=== PATIENT | male | born 1955 | race Caucasian/White ===

== ENCOUNTER 2018-06-10 10:08 | Outpatient (CLI) | payer BC ==
--- NOTE | 2018-06-10 14:01 | MRI ---
LEFT SHOULDER MRI WITHOUT IV CONTRAST: Date: 06/10/18 HISTORY: 62-year-old male with history of left shoulder pain, rotator cuff syndrome left shoulder, M75.102, li mited range of motion, left arm weakness for 7-8 months without known injury. TECHNIQUE: Multiplanar, multisequence MRI examination of the left shoulder is performed. FINDINGS: There is a high grade, partial thickness tear of the supraspinatus tendon at the insertion, with pote ntial punctate full thickness component with minimal fluid in the subacromial/subdeltoid bursa. Mild AC joint arthrosis changes are noted with some minimal subchondral cystic changes and some fat strand ing in the subacromial/subdeltoid bursa. Several small subchondral cystic changes are noted of the gr eater tuberosity, particularly anteriorly. The biceps tendon appears intact. Rotator cuff muscles timothy w some mild generalized muscle volume loss. There is some slight blunting of the superior labrum, but no definitive acute labral tear. IMPRESSION: High grade partial thickness tear of the supraspinatus tendon near the insertion with potential small punctate full thickness component, but no significant retraction. Mild diffuse rotator cuff muscle v olume loss. Slightly blunted superior labrum. AC joint arthrosis with some mild fat stranding and ifeanyi y minimal fluid in the subacromial bursa. POS: JUSTO
== END 2018-06-10 10:09 | disposition home or self-care (01) ==
LOC: BICMRI 10:08
PROVIDERS: ATTEND Family Medicine
DX: M75.102 Unspecified rotator cuff tear or rupture of left shoulder, not specified as traumatic (principal)

== ENCOUNTER 2021-01-24 10:50 | Inpatient (IN) | payer MEDICARE, BC ==
[~2021-01-24 10:50] MED LIST: Iopamidol-370 76% 500 ML 1 ML ONE
[2021-01-24 12:14] LABS: Hemoglobin 14.7 g/dL (14.0-18.0); Mean Corpuscular HGB CONC 32.3 g/dL (32.0-36.0); Mean Corpuscular Hemoglobin 28.6 pg (27.0-31.0); Mean Corpuscular Volume 88.7 fL (78.0-98.0); Mean Platelet Volume 7.2 fL (7.4-10.4); Platelet Count 245 thou/uL (130-400); RBC Distribution Width 13.6 % (11.5-14.5); Red Blood Cell (RBC) Count 5.15 mill/uL (4.70-6.10)
[2021-01-24 12:35] LABS: ALT (SGPT) 16 U/L (8-55); AST (SGOT) 18 U/L (5-34); Albumin 3.7 g/dL (3.4-4.8); Alkaline Phosphatase 65 U/L (40-110); Anion Gap 13 mmol/L (10-20); BUN (Urea Nitrogen) 23 mg/dL (8.4-25.7); Bilirubin, Total 0.7 mg/dL (0.2-1.2); Calc. Creatinine Clearance 0 mL/min (70-130); Calcium 10.3 mg/dL (7.8-10.44); Carbon Dioxide 31 mmol/L (23-31); Chloride 96 mmol/L (98-107); Globulin 3.8 g/dL (2.4-3.5); Glucose 115 mg/dL (80-115); Potassium 5.2 mmol/L (3.5-5.1); Protein, Total 7.5 g/dL (5.8-8.1); Sodium 135 mmol/L (136-145)
[2021-01-24 12:50] LABS: Band 4 % (5-11); Lymphocytes 15 % (21-51); MDiff Complete? YES; Monocytes 21 % (0-10); Myelocyte 1 % (0-0); Neutrophil 59 % (42-75)
[2021-01-24 12:51] LABS: Platelet Morphology Comment Appears Adequate
[2021-01-24] MEDS ORDERED: Ketorolac Tromethamine 30 MG/ML VIAL ONE (16:29)
[2021-01-24 17:12] LABS: Bilirubin Negative (Negative); Blood, Urine Negative (Negative); Clarity Clear (Clear); Glucose, Urine (Dipstick) Greater than 1000 mg/dL (Negative); Ketone, Urine Negative (Negative); Leukocyte Negative Leu/uL (Negative); Nitrite Negative (Negative); Protein, Urine (Dipstick) Negative (Neg-Trace); Specific Gravity, Urine 1.041 (1.002-1.036); Urobilinogen Normal mg/dL (Less than 2)
[2021-01-24 17:54] LABS: SARS-CoV-2 NAA Rapid Test Not Detected (NotDetected)
[2021-01-24] MEDS ORDERED: Vancomycin 1 GM/200 ML BAG ONE (18:24)
[2021-01-24 19:36] LABS: Troponin I Less than 0.010 ng/mL (< 0.028)
[2021-01-24] MEDS ORDERED: Piperacillin/Tazobactam 3.375 GM VIAL ONE (19:49)
[2021-01-24 23:01] LABS: Troponin I Less than 0.010 ng/mL (< 0.028)
[2021-01-25] MEDS ORDERED: Ondansetron ODT 4 MG TAB PO PRN (00:05)
[2021-01-25] MEDS ORDERED: Dextrose 5% in Water 1,000 ML IV PRN (00:05)
[2021-01-25] MEDS ORDERED: HumaLOG 300 UNITS/3 ML VIAL SC PRN (00:05)
[2021-01-25] MEDS ORDERED: Acetaminophen 325 MG TAB PO PRN (00:05)
[2021-01-25] MEDS ORDERED: Ondansetron PF 4 MG/2 ML Vial IVP PRN (00:05)
[2021-01-25] MEDS ORDERED: HYDROcodone/Acetaminophen 5/325 mg Tablet PO PRN (00:05)
[2021-01-25] MEDS ORDERED: Dextrose 50% Abboject 50 ML SYRINGE SLOW IVP PRN (00:05)
[2021-01-25 00:57] LABS: Anion Gap 16 mmol/L (10-20); BUN (Urea Nitrogen) 27 mg/dL (8.4-25.7); Calc. Creatinine Clearance 0 mL/min (70-130); Calcium 9.4 mg/dL (7.8-10.44); Carbon Dioxide 22 mmol/L (23-31); Chloride 101 mmol/L (98-107); Glucose 85 mg/dL (80-115); Potassium 4.1 mmol/L (3.5-5.1); Sodium 135 mmol/L (136-145)
[2021-01-25 02:14] VITALS: BMI 28.8
[2021-01-25] MEDS: Piperacillin/Tazobactam 3.375 GM in Sodium Chloride 0.9% 100 ML IVPB SCH ×3 (04:39→22:35)
[2021-01-25 05:18] LABS: Hemoglobin 13.2 g/dL (14.0-18.0); Mean Corpuscular HGB CONC 31.4 g/dL (32.0-36.0); Mean Corpuscular Hemoglobin 28.3 pg (27.0-31.0); Mean Corpuscular Volume 90.1 fL (78.0-98.0); Mean Platelet Volume 7.1 fL (7.4-10.4); Platelet Count 228 thou/uL (130-400); RBC Distribution Width 13.6 % (11.5-14.5); Red Blood Cell (RBC) Count 4.65 mill/uL (4.70-6.10); White Blood Cell (WBC) Count 8.9 thou/uL (4.8-10.8)
[2021-01-25 05:30] LABS: Anion Gap 10 mmol/L (10-20); BUN (Urea Nitrogen) 28 mg/dL (8.4-25.7); Calc. Creatinine Clearance 100 mL/min (70-130); Calcium 9.3 mg/dL (7.8-10.44); Carbon Dioxide 30 mmol/L (23-31); Chloride 99 mmol/L (98-107); Glucose 129 mg/dL (80-115); Potassium 3.9 mmol/L (3.5-5.1); Sodium 135 mmol/L (136-145)
[2021-01-25] MEDS: Ketorolac Tromethamine 30 MG/ML VIAL IVP SCH ×3 (05:53→18:19)
[2021-01-25 06:05] LABS: Band 16 % (5-11); Eosinophils 3 % (0-10); Lymphocytes 24 % (21-51); MDiff Complete? YES; Monocytes 14 % (0-10); Neutrophil 43 % (42-75)
[2021-01-25] MEDS ORDERED: VANCOMYCIN 1.25 GM/250 ML BAG 1.25 GM in Premix Bag 1 BAG IVPB SCH (07:00)
[2021-01-25] MEDS: Enoxaparin Sodium 40 MG/0.4 ML SYRINGE SC SCH (09:07)
[2021-01-25] MEDS: VANCOMYCIN 1.25 GM/250 ML BAG 1.25 GM in Premix Bag 1 BAG IVPB SCH ×2 (09:08→21:13)
[2021-01-25] MEDS: Lantus 1000 UNITS/10 ML VIAL SC SCH (22:35)
[2021-01-25] MEDS: Atorvastatin Calcium 20 MG TAB PO SCH (22:38)
[2021-01-26] MEDS: Ketorolac Tromethamine 30 MG/ML VIAL IVP SCH ×4 (00:02→19:03)
[2021-01-26 04:52] LABS: Hemoglobin 12.3 g/dL (14.0-18.0); Mean Corpuscular HGB CONC 31.8 g/dL (32.0-36.0); Mean Corpuscular Hemoglobin 28.7 pg (27.0-31.0); Mean Corpuscular Volume 90.1 fL (78.0-98.0); Mean Platelet Volume 7.2 fL (7.4-10.4); Platelet Count 225 thou/uL (130-400); RBC Distribution Width 13.7 % (11.5-14.5); Red Blood Cell (RBC) Count 4.29 mill/uL (4.70-6.10); White Blood Cell (WBC) Count 10.1 thou/uL (4.8-10.8)
[2021-01-26 05:10] LABS: Anion Gap 13 mmol/L (10-20); BUN (Urea Nitrogen) 20 mg/dL (8.4-25.7); Calc. Creatinine Clearance 99 mL/min (70-130); Calcium 8.7 mg/dL (7.8-10.44); Carbon Dioxide 25 mmol/L (23-31); Chloride 103 mmol/L (98-107); Glucose 182 mg/dL (80-115); Potassium 3.8 mmol/L (3.5-5.1); Sodium 137 mmol/L (136-145)
[2021-01-26] MEDS: Levothyroxine Sodium 100 MCG TAB PO SCH (05:14)
[2021-01-26] MEDS: Piperacillin/Tazobactam 3.375 GM in Sodium Chloride 0.9% 100 ML IVPB SCH ×3 (05:15→22:19)
[2021-01-26 05:32] LABS: Band 2 % (5-11); Eosinophils 1 % (0-10); Lymphocytes 20 % (21-51); MDiff Complete? YES; Monocytes 12 % (0-10); Neutrophil 64 % (42-75)
[2021-01-26 08:31] LABS: Vancomycin, Trough 16.2 ug/mL
[2021-01-26] MEDS: Pioglitazone HCl 15 MG TAB PO SCH (09:08)
[2021-01-26] MEDS: Enoxaparin Sodium 40 MG/0.4 ML SYRINGE SC SCH (09:08)
[2021-01-26] MEDS: Aspirin 81 mg Enteric Coated Tablet PO SCH (09:09)
[2021-01-26] MEDS: Amlodipine 5 MG TAB PO SCH (09:10)
[2021-01-26] MEDS: Empagliflozin 25 MG TAB PO SCH (09:10)
[2021-01-26] MEDS: Metamucil PACK PO SCH (09:10)
[2021-01-26] MEDS: Lantus 1000 UNITS/10 ML VIAL SC SCH ×2 (09:11→21:25)
[2021-01-26] MEDS: Multivitamin W/ Minerals 1 TAB PO SCH (09:11)
[2021-01-26] MEDS: Spironolactone 25 MG TAB PO SCH (09:14)
[2021-01-26] MEDS: VANCOMYCIN 1.25 GM/250 ML BAG 1.25 GM in Premix Bag 1 BAG IVPB SCH ×2 (09:18→21:19)
[2021-01-26] MEDS: HumaLOG 300 UNITS/3 ML VIAL SC PRN (10:38)
[2021-01-26] MEDS: Atorvastatin Calcium 20 MG TAB PO SCH (21:26)
[2021-01-27] MEDS: Ketorolac Tromethamine 30 MG/ML VIAL IVP SCH ×4 (01:10→16:30)
[2021-01-27 05:25] LABS: HIV (1/2) Antibody/Antigen Non-Reactive (NonReactive); HIV 1/2 INDEX 0.08 S/CO (<1.00)
[2021-01-27] MEDS: Piperacillin/Tazobactam 3.375 GM in Sodium Chloride 0.9% 100 ML IVPB SCH ×3 (06:02→16:30)
[2021-01-27] MEDS: Levothyroxine Sodium 100 MCG TAB PO SCH (06:02)
[2021-01-27] MEDS: Enoxaparin Sodium 40 MG/0.4 ML SYRINGE SC SCH (08:59)
[2021-01-27] MEDS: Aspirin 81 mg Enteric Coated Tablet PO SCH (08:59)
[2021-01-27] MEDS: Amlodipine 5 MG TAB PO SCH (09:00)
[2021-01-27] MEDS: Empagliflozin 25 MG TAB PO SCH (09:00)
[2021-01-27] MEDS: Lantus 1000 UNITS/10 ML VIAL SC SCH ×2 (09:00→20:55)
[2021-01-27] MEDS: Metamucil PACK PO SCH ×2 (09:00→09:16)
[2021-01-27] MEDS: Multivitamin W/ Minerals 1 TAB PO SCH (09:00)
[2021-01-27] MEDS: Spironolactone 25 MG TAB PO SCH (09:00)
[2021-01-27] MEDS: Pioglitazone HCl 15 MG TAB PO SCH (09:00)
[2021-01-27] MEDS: VANCOMYCIN 1.25 GM/250 ML BAG 1.25 GM in Premix Bag 1 BAG IVPB SCH (09:03)
[2021-01-27] MEDS: Atorvastatin Calcium 20 MG TAB PO SCH (20:54)
[2021-01-27] MEDS: Doxycycline 100 MG CAP PO SCH (20:55)
[2021-01-27] MEDS: Amoxicillin/Potassium Clav 875 MG TAB PO SCH (20:55)
[2021-01-28] MEDS: Levothyroxine Sodium 100 MCG TAB PO SCH (05:58)
[2021-01-28] MEDS: Ketorolac Tromethamine 30 MG/ML VIAL IVP SCH ×2 (06:01)
[2021-01-28] MEDS: HumaLOG 300 UNITS/3 ML VIAL SC PRN (06:21)
[2021-01-28] MEDS: Enoxaparin Sodium 40 MG/0.4 ML SYRINGE SC SCH (08:03)
[2021-01-28] MEDS: Doxycycline 100 MG CAP PO SCH (08:04)
[2021-01-28] MEDS: Spironolactone 25 MG TAB PO SCH (08:04)
[2021-01-28] MEDS: Amoxicillin/Potassium Clav 875 MG TAB PO SCH (08:04)
[2021-01-28] MEDS: Pioglitazone HCl 15 MG TAB PO SCH (08:04)
[2021-01-28] MEDS: Empagliflozin 25 MG TAB PO SCH (08:04)
[2021-01-28] MEDS: Aspirin 81 mg Enteric Coated Tablet PO SCH (08:04)
[2021-01-28] MEDS: Amlodipine 5 MG TAB PO SCH (08:04)
[2021-01-28] MEDS: Metamucil PACK PO SCH (08:04)
[2021-01-28] MEDS: Lantus 1000 UNITS/10 ML VIAL SC SCH (08:07)
[2021-01-28] MEDS: Prasterone (Dhea) [Dhea] 50 MG Capsule PO SCH ×3 (10:54→10:56)
[2021-01-28 11:54] VITALS: BP 130/60; TEMP 97.9
[2021-01-31 04:14] LABS: QuantiFERON-TB Gold Plus Negative (Negative)
[2021-01-31 14:38] LABS: A. flavus Negative (Neg:<1:1); A. fumigatus Negative (Neg:<1:1); A. niger Negative (Neg:<1:1); Blastomyces AB Negative (Neg:<1:1); Cytoplasmic (C-ANCA) <1:20 titer (Neg:<1:20); Myeloperoxidase AutoAbs <9.0 U/mL (0.0-9.0); Perinuclear (P-ANCA) <1:20 titer (Neg:<1:20); Proteinase-3 AutoAbs Less than 3.5 U/mL (0.0-3.5)
== END 2021-01-28 13:40 | disposition home or self-care (01) | DRG 179 ==
LOC: ERS 10:50 → 2NO 18:43
PROVIDERS: ADMIT Hospitalist; ATTEND Internal Medicine
PROC: 8E0ZXY6 Isolation (ICD-10-PCS; principal; 2021-01-25)
DX: J85.0 Gangrene and necrosis of lung (principal); Z20.822 Contact with and (suspected) exposure to COVID-19; E03.9 Hypothyroidism, unspecified; I10 Essential (primary) hypertension; E78.5 Hyperlipidemia, unspecified; G40.909 Epilepsy, unspecified, not intractable, without status epilepticus; E11.9 Type 2 diabetes mellitus without complications; E87.5 Hyperkalemia; E87.6 Hypokalemia; Z28.21 Immunization not carried out because of patient refusal; Z86.16 Personal history of COVID-19; Z87.01 Personal history of pneumonia (recurrent); Z79.899 Other long term (current) drug therapy; Z79.890 Hormone replacement therapy; Z79.4 Long term (current) use of insulin; Z79.82 Long term (current) use of aspirin
CPT/HCPCS: 0240U; 36415; 36416; 71045; 71275; 80048; 80053; 80202; 81003; 83520; 83880; 84484; 85025; 85652; 86256; 86480; 86612; 86635; 86698; 87040; 87086; 87385; 87389; 93005; 94640; 96365; 96367; 96375; J1650; J1815; J1885; J2543; J3370; J3490; Q9967

== ENCOUNTER 2021-02-08 08:45 | Outpatient (CLI) | payer MEDICARE, BC | END 2021-02-08 08:46 | disposition home or self-care (01) | LOC: BICRAD 08:45 | PROVIDERS: ATTEND Internal Medicine Critical Care Medicine | DX: R06.00 Dyspnea, unspecified (principal); R91.8 Other nonspecific abnormal finding of lung field | CPT/HCPCS: 71046 ==

== ENCOUNTER 2021-04-13 08:27 | Outpatient (CLI) | payer MEDICARE, BC | END 2021-04-13 08:28 | disposition home or self-care (01) | LOC: BICCT 08:27 | PROVIDERS: ATTEND Internal Medicine Critical Care Medicine | DX: R91.1 Solitary pulmonary nodule (principal); R91.8 Other nonspecific abnormal finding of lung field | CPT/HCPCS: 71250 ==

== ENCOUNTER 2021-07-06 09:24 | Outpatient (CLI) | payer MEDICARE, BC | END 2021-07-06 09:25 | disposition home or self-care (01) | LOC: BICCT 09:24 | PROVIDERS: ATTEND Internal Medicine Critical Care Medicine | DX: J85.1 Abscess of lung with pneumonia (principal); R91.8 Other nonspecific abnormal finding of lung field | CPT/HCPCS: 71250 ==

== ENCOUNTER 2022-01-04 08:29 | Outpatient (CLI) | payer MEDICARE, BC | END 2022-01-04 08:30 | disposition home or self-care (01) | LOC: CT 08:29 | PROVIDERS: ATTEND Internal Medicine Critical Care Medicine | DX: R91.8 Other nonspecific abnormal finding of lung field (principal); I25.10 Atherosclerotic heart disease of native coronary artery without angina pectoris; I70.0 Atherosclerosis of aorta | CPT/HCPCS: 71250 ==

== ENCOUNTER 2022-10-03 07:48 | Outpatient (CLI) | payer MEDICARE, BC | END 2022-10-03 07:49 | disposition home or self-care (01) | LOC: CT 07:48 | PROVIDERS: ATTEND Internal Medicine Critical Care Medicine | DX: R91.8 Other nonspecific abnormal finding of lung field (principal) | CPT/HCPCS: 71250 ==

== ENCOUNTER 2023-10-09 09:41 | Outpatient (CLI) | payer MEDICARE, BC | END 2023-10-09 09:42 | disposition home or self-care (01) | LOC: BICCT 09:41 | PROVIDERS: ATTEND Internal Medicine Critical Care Medicine | DX: R91.8 Other nonspecific abnormal finding of lung field (principal) | CPT/HCPCS: 71250 ==

== ENCOUNTER 2024-04-29 07:48 | Outpatient (CLI) | payer MEDICARE | END 2024-04-29 07:49 | disposition home or self-care (01) | LOC: ULT 07:48 | PROVIDERS: ATTEND Family Medicine | DX: R09.89 Other specified symptoms and signs involving the circulatory and respiratory systems (principal); E11.9 Type 2 diabetes mellitus without complications; Z79.4 Long term (current) use of insulin; I77.89 Other specified disorders of arteries and arterioles | CPT/HCPCS: 93923 ==

== ENCOUNTER 2024-04-30 10:40 | Inpatient (IN) | payer MEDICARE ==
[2024-04-30 11:11] LABS: #Basophils 0.09 10x3/uL (0.0-0.2); %Basophils 0.4 % (0.0-1.0); %Eosinophils 0.4 % (0.0-10.0); %Lymphocytes 6.7 % (21.0-51.0); %Monocytes 14.7 % (0.0-10.0); %Neutrophils 73.5 % (42.0-75.0); Hematocrit 34.4 % (42.0-52.0); Hemoglobin 10.8 g/dL (14.0-18.0); Mean Corpuscular HGB CONC 31.4 g/dL (32.0-36.0); Mean Corpuscular Volume 92.5 fL (78.0-98.0); Mean Platelet Volume 8.7 fL (7.4-10.4); Platelet Count 489 10x3/uL (130-400); RBC Distribution Width 14.1 % (11.5-14.5); Red Blood Cell (RBC) Count 3.72 mill/uL (4.70-6.10)
[2024-04-30 11:25] LABS: Anion Gap 11 mmol/L (10-20); BUN (Urea Nitrogen) 22 mg/dL (8.4-25.7); Calc. Creatinine Clearance 0 mL/min (70-130); Carbon Dioxide 27 mmol/L (23-31); Chloride 101 mmol/L (98-107); Potassium 5.4 mmol/L (3.5-5.1); Sodium 134 mmol/L (136-145)
[2024-04-30 11:26] LABS: ALT (SGPT) 38 U/L (8-55); AST (SGOT) 30 U/L (5-34); Albumin 1.9 g/dL (3.4-4.8); Alkaline Phosphatase 329 U/L (40-110); Bilirubin, Total 0.3 mg/dL (0.2-1.2); Calcium 9.6 mg/dL (7.8-10.44); Estimated GFR 92; Globulin 4.7 g/dL (2.4-3.5); Glucose 250 mg/dL (80-115); Lipase 42 U/L (8-78); Protein, Total 6.6 g/dL (5.8-8.1)
[2024-04-30 11:46] LABS: CRP,High Sensitivity (Inhouse) 25.82 mg/dL (< or = 0.5)
[2024-04-30] MEDS ORDERED: Iopamidol 370 76% 100 ML VIAL ONE (11:56)
[2024-04-30 13:23] LABS: Bilirubin Negative (Negative); Blood, Urine Negative (Negative); Clarity Clear (Clear); Glucose, Urine (Dipstick) Greater than 1000 mg/dL (Negative); Ketone, Urine Trace mg/dL (Negative); Leukocyte Negative Leu/uL (Negative); Nitrite Negative (Negative); Protein, Urine (Dipstick) Negative (Neg-Trace); RBC/HPF 0-3 HPF (0-3); Urobilinogen Normal mg/dL (Less than 2); WBC/HPF 0-3 HPF (0-3)
[2024-04-30 13:24] LABS: Bacteria/HPF None Seen HPF (None Seen); CAUTI Indications for Culture Fever or rigors; Squamous Epithelial 0-3 HPF (0-3)
[2024-04-30 13:25] LABS: Urine Culture Reflex No No
[2024-04-30 13:26] LABS: Free T4 (Free Thyroxine) 1.09 ng/dL (0.70-1.48); Thyroid Stimulating Hormone 1.8092 uIU/mL (0.35-4.94)
[2024-04-30] MEDS ORDERED: Acetaminophen 500 MG TAB ONE (15:30)
[2024-04-30] MEDS ORDERED: Glucagon 1 MG/ML KIT IM PRN (16:18)
[2024-04-30] MEDS ORDERED: Dextrose 50% Abboject 50 ML SYRINGE SLOW IVP PRN (16:18)
[2024-04-30] MEDS ORDERED: Senokot S 8.6-50 MG TAB PO PRN (16:18)
[2024-04-30] MEDS ORDERED: Dextrose 5% in Water 1,000 ML IV PRN (16:18)
[2024-04-30 17:47] VITALS: BMI 27.1
[2024-04-30] MEDS: Furosemide 40 MG (4 mL) VIAL SLOW IVP SCH (17:48)
[2024-04-30] MEDS: Albumin 25% 25 GM (100 mL) BOT IVPB SCH ×2 (17:48→23:45)
[2024-04-30] MEDS: Cefepime 2 GM in Sodium Chloride 0.9% 100 ML IVPB SCH (21:20)
[2024-04-30] MEDS: Atorvastatin Calcium 20 MG TAB PO SCH (21:21)
[2024-04-30] MEDS: Insulin Glargine 30 UNITS/0.3 ML VIAL SC SCH (21:22)
[2024-04-30] MEDS: Divalproex Sodium 250 MG ER.TAB PO SCH (21:22)
[2024-04-30] MEDS: Acetaminophen 325 MG TAB PO PRN (21:32)
[2024-04-30] MEDS: Insulin Lispro 100 UNIT/ML 10 ML VIAL SC PRN (21:39)
[2024-05-01] MEDS: Acetaminophen 325 MG TAB PO SCH (01:38)
[2024-05-01 05:06] LABS: #Basophils 0.08 10x3/uL (0.0-0.2); %Basophils 0.5 % (0.0-1.0); %Eosinophils 0.8 % (0.0-10.0); %Lymphocytes 9.6 % (21.0-51.0); %Monocytes 18.5 % (0.0-10.0); %Neutrophils 68.2 % (42.0-75.0); Hemoglobin 9.1 g/dL (14.0-18.0); Mean Corpuscular HGB CONC 32.5 g/dL (32.0-36.0); Mean Corpuscular Hemoglobin 28.6 pg (27.0-31.0); Mean Corpuscular Volume 88.1 fL (78.0-98.0); Mean Platelet Volume 8.8 fL (7.4-10.4); Platelet Count 402 10x3/uL (130-400); RBC Distribution Width 14.1 % (11.5-14.5); Red Blood Cell (RBC) Count 3.18 mill/uL (4.70-6.10)
[2024-05-01 05:28] LABS: Anion Gap 12 mmol/L (10-20); BUN (Urea Nitrogen) 18 mg/dL (8.4-25.7); Calc. Creatinine Clearance 93 mL/min (70-130); Calcium 9.3 mg/dL (7.8-10.44); Carbon Dioxide 28 mmol/L (23-31); Chloride 103 mmol/L (98-107); Estimated GFR 95; Glucose 168 mg/dL (80-115); Potassium 4.3 mmol/L (3.5-5.1); Sodium 139 mmol/L (136-145)
[2024-05-01] MEDS: Levothyroxine Sodium 100 MCG TAB PO SCH (05:40)
[2024-05-01] MEDS: Insulin Lispro 100 UNIT/ML 10 ML VIAL SC PRN (06:27)
[2024-05-01] MEDS: Furosemide 40 MG (4 mL) VIAL SLOW IVP SCH (09:31)
[2024-05-01] MEDS: Insulin Glargine 30 UNITS/0.3 ML VIAL SC SCH (09:31)
[2024-05-01] MEDS: Enoxaparin 40 MG (0.4 mL) SYRINGE SC SCH (09:32)
[2024-05-01 11:53] LABS: ANA Symphony (Qualitative) Negative (Negative); ANA Symphony (Quantitative) 0.2 Ratio (< 0.7 Negative); dsDNA IgG Antibody 0.9 IU/mL (<10 Negative)
[2024-05-01] MEDS: Acetaminophen 500 MG TAB PO PRN (20:09)
[2024-05-02 04:59] LABS: #Basophils 0.08 10x3/uL (0.0-0.2); %Basophils 0.4 % (0.0-1.0); %Eosinophils 0.4 % (0.0-10.0); %Lymphocytes 8.1 % (21.0-51.0); %Monocytes 15.9 % (0.0-10.0); %Neutrophils 73.2 % (42.0-75.0); Hematocrit 31.1 % (42.0-52.0); Hemoglobin 10.1 g/dL (14.0-18.0); Mean Corpuscular HGB CONC 32.5 g/dL (32.0-36.0); Mean Corpuscular Hemoglobin 29.5 pg (27.0-31.0); Mean Corpuscular Volume 90.9 fL (78.0-98.0); Mean Platelet Volume 8.9 fL (7.4-10.4); Platelet Count 442 10x3/uL (130-400); RBC Distribution Width 13.9 % (11.5-14.5); Red Blood Cell (RBC) Count 3.42 mill/uL (4.70-6.10)
[2024-05-02 05:07] LABS: ALT (SGPT) 41 U/L (8-55); AST (SGOT) 36 U/L (5-34); Albumin 2.6 g/dL (3.4-4.8); Alkaline Phosphatase 298 U/L (40-110); Anion Gap 15 mmol/L (10-20); BUN (Urea Nitrogen) 18 mg/dL (8.4-25.7); Bilirubin, Total 0.5 mg/dL (0.2-1.2); Calc. Creatinine Clearance 114 mL/min (70-130); Calcium 9.7 mg/dL (7.8-10.44); Carbon Dioxide 29 mmol/L (23-31); Chloride 101 mmol/L (98-107); Estimated GFR 100; Globulin 3.9 g/dL (2.4-3.5); Glucose 146 mg/dL (80-115); Potassium 4.7 mmol/L (3.5-5.1); Protein, Total 6.5 g/dL (5.8-8.1); Sodium 140 mmol/L (136-145)
[2024-05-02] MEDS: Empagliflozin 25 MG TAB PO SCH (09:15)
[2024-05-02] MEDS: Gabapentin 300 MG CAP PO SCH (09:16)
[2024-05-02] MEDS: Spironolactone 25 MG TAB PO SCH (09:16)
[2024-05-03 05:20] LABS: #Basophils 0.08 10x3/uL (0.0-0.2); %Basophils 0.4 % (0.0-1.0); %Eosinophils 0.8 % (0.0-10.0); %Lymphocytes 7.7 % (21.0-51.0); %Monocytes 16.7 % (0.0-10.0); %Neutrophils 72.5 % (42.0-75.0); Hematocrit 33.1 % (42.0-52.0); Hemoglobin 10.5 g/dL (14.0-18.0); Mean Corpuscular HGB CONC 31.7 g/dL (32.0-36.0); Mean Corpuscular Hemoglobin 29.1 pg (27.0-31.0); Mean Corpuscular Volume 91.7 fL (78.0-98.0); Mean Platelet Volume 8.8 fL (7.4-10.4); Platelet Count 496 10x3/uL (130-400); RBC Distribution Width 13.6 % (11.5-14.5); Red Blood Cell (RBC) Count 3.61 mill/uL (4.70-6.10)
[2024-05-03 05:39] LABS: ALT (SGPT) 64 U/L (8-55); AST (SGOT) 65 U/L (5-34); Albumin 2.5 g/dL (3.4-4.8); Alkaline Phosphatase 328 U/L (40-110); Anion Gap 14 mmol/L (10-20); BUN (Urea Nitrogen) 18 mg/dL (8.4-25.7); Bilirubin, Total 0.4 mg/dL (0.2-1.2); Calc. Creatinine Clearance 105 mL/min (70-130); Carbon Dioxide 30 mmol/L (23-31); Chloride 98 mmol/L (98-107); Estimated GFR 100; Glucose 110 mg/dL (80-115); Potassium 4.7 mmol/L (3.5-5.1); Protein, Total 6.5 g/dL (5.8-8.1); Sodium 137 mmol/L (136-145)
[2024-05-03 05:48] LABS: CRP,High Sensitivity (Inhouse) 17.33 mg/dL (< or = 0.5)
[2024-05-03 12:20] VITALS: BP 123/58; TEMP 97.8
== END 2024-05-03 12:41 | disposition home or self-care (01) | DRG 815 ==
LOC: ERS 10:40 → 2NO 17:00
PROVIDERS: ADMIT Family Medicine; ATTEND Internal Medicine
DX: D72.829 Elevated white blood cell count, unspecified (principal); E87.1 Hypo-osmolality and hyponatremia; E11.40 Type 2 diabetes mellitus with diabetic neuropathy, unspecified; M48.07 Spinal stenosis, lumbosacral region; J84.10 Pulmonary fibrosis, unspecified; E78.5 Hyperlipidemia, unspecified; E03.9 Hypothyroidism, unspecified; R91.8 Other nonspecific abnormal finding of lung field; G40.909 Epilepsy, unspecified, not intractable, without status epilepticus; I11.0 Hypertensive heart disease with heart failure; I50.9 Heart failure, unspecified; D64.9 Anemia, unspecified; E87.5 Hyperkalemia; Z79.4 Long term (current) use of insulin; Z79.85 Long-term (current) use of injectable non-insulin antidiabetic drugs; Z79.890 Hormone replacement therapy; Z79.899 Other long term (current) drug therapy; Z79.84 Long term (current) use of oral hypoglycemic drugs
CPT/HCPCS: 36415; 36416; 71045; 71250; 72158; 74177; 80048; 80053; 80164; 81001; 82550; 82607; 83605; 83690; 83880; 84145; 84439; 84443; 85025; 85379; 86038; 86140; 86141; 86225; 87040; 88184; 88185; 88189; 93005; 93306; 93970; J0692; J1650; J1815; J1940; P9047; Q9967

== ENCOUNTER 2024-05-25 18:03 | Inpatient (IN) | payer MEDICARE ==
[2024-05-25] MEDS ORDERED: Ondansetron PF 4 MG/2 ML Vial IVP PRN (19:15)
[2024-05-25] MEDS ORDERED: Dextrose 50% Abboject 50 ML SYRINGE SLOW IVP PRN (19:17)
[2024-05-25] MEDS ORDERED: Dextrose 5% in Water 1,000 ML IV PRN (19:17)
[2024-05-25] MEDS ORDERED: Glucagon 1 MG/ML KIT IM PRN (19:17)
[2024-05-25] MEDS: Enoxaparin 40 MG (0.4 mL) SYRINGE SC SCH (20:25)
[2024-05-25] MEDS: Sodium Chloride 0.9% 1,000 ML IV SCH (20:25)
[2024-05-25] MEDS: Gabapentin 300 MG CAP PO SCH (20:26)
[2024-05-25] MEDS: Divalproex Sodium 500 MG ER.TAB PO SCH (20:26)
[2024-05-25] MEDS: Ketorolac Tromethamine 30 MG (1 mL) VIAL IVP PRN (20:26)
[2024-05-25] MEDS: Atorvastatin Calcium 20 MG TAB PO SCH (20:26)
[2024-05-25 20:33] VITALS: BMI 25.4
[2024-05-25] MEDS: Insulin Glargine 30 UNITS/0.3 ML VIAL SC SCH (21:37)
[2024-05-26] MEDS ORDERED: Cyclobenzaprine 10 MG TAB PO PRN
[2024-05-26] MEDS: Levothyroxine Sodium 100 MCG TAB PO SCH (05:51)
[2024-05-26 06:27] LABS: #Basophils 0.03 10x3/uL (0.0-0.2); %Basophils 0.3 % (0.0-1.0); %Eosinophils 2.8 % (0.0-10.0); %Lymphocytes 22.2 % (21.0-51.0); %Monocytes 18.4 % (0.0-10.0); %Neutrophils 55.6 % (42.0-75.0); Hematocrit 29.9 % (42.0-52.0); Mean Corpuscular HGB CONC 30.1 g/dL (32.0-36.0); Mean Corpuscular Hemoglobin 27.1 pg (27.0-31.0); Mean Corpuscular Volume 90.1 fL (78.0-98.0); Mean Platelet Volume 9.7 fL (7.4-10.4); Platelet Count 322 10x3/uL (130-400); RBC Distribution Width 13.6 % (11.5-14.5); Red Blood Cell (RBC) Count 3.32 mill/uL (4.70-6.10)
[2024-05-26 06:42] LABS: Anion Gap 13 mmol/L (10-20); BUN (Urea Nitrogen) 37 mg/dL (8.4-25.7); Calc. Creatinine Clearance 79 mL/min (70-130); Calcium 8.7 mg/dL (7.8-10.44); Carbon Dioxide 23 mmol/L (23-31); Chloride 110 mmol/L (98-107); Estimated GFR 93; Glucose 91 mg/dL (80-115); Potassium 4.2 mmol/L (3.5-5.1); Sodium 142 mmol/L (136-145)
[2024-05-26] MEDS: Empagliflozin 25 MG TAB PO SCH (08:40)
[2024-05-26] MEDS: Spironolactone 25 MG TAB PO SCH (08:41)
[2024-05-26] MEDS: Cholecalciferol 1,000 UNITS (25 MCG) TAB PO SCH (08:41)
[2024-05-26] MEDS: Acetaminophen 325 MG TAB PO PRN (11:51)
[2024-05-26 13:24] VITALS: BMI 25.4
[2024-05-26] MEDS: Enoxaparin 40 MG (0.4 mL) SYRINGE SC SCH (20:45)
[2024-05-27] MEDS: Ketorolac Tromethamine 30 MG (1 mL) VIAL IVP PRN (01:56)
[2024-05-27 05:53] LABS: #Basophils 0.05 10x3/uL (0.0-0.2); %Basophils 0.4 % (0.0-1.0); %Eosinophils 1.9 % (0.0-10.0); %Lymphocytes 27.8 % (21.0-51.0); %Monocytes 13.5 % (0.0-10.0); %Neutrophils 55.8 % (42.0-75.0); Mean Corpuscular Hemoglobin 27.5 pg (27.0-31.0); Mean Corpuscular Volume 88.7 fL (78.0-98.0); Mean Platelet Volume 9.9 fL (7.4-10.4); Platelet Count 316 10x3/uL (130-400); RBC Distribution Width 13.5 % (11.5-14.5); Red Blood Cell (RBC) Count 3.27 mill/uL (4.70-6.10)
[2024-05-27 06:19] LABS: Anion Gap 17 mmol/L (10-20); BUN (Urea Nitrogen) 42 mg/dL (8.4-25.7); Calc. Creatinine Clearance 85 mL/min (70-130); Calcium 8.6 mg/dL (7.8-10.44); Carbon Dioxide 23 mmol/L (23-31); Chloride 108 mmol/L (98-107); Estimated GFR 95; Glucose 92 mg/dL (80-115); Potassium 4.4 mmol/L (3.5-5.1); Sodium 144 mmol/L (136-145)
[2024-05-27] MEDS ORDERED: Morphine 2 MG/ML VIAL SLOW IVP PRN (13:29)
[2024-05-27] MEDS: methylPREDNISolone Sod Succ 40 MG VIAL IVP SCH ×2 (15:22→20:03)
[2024-05-27] MEDS: Pantoprazole DR 40 MG TAB PO SCH (15:22)
[2024-05-27] MEDS: Insulin Lispro 100 UNIT/ML 10 ML VIAL SC PRN (17:18)
[2024-05-28] MEDS: Pantoprazole DR 40 MG TAB PO SCH (08:15)
[2024-05-28] MEDS ORDERED: Morphine 4 MG/ML VIAL SLOW IVP PRN (09:22)
[2024-05-28] MEDS: Insulin Lispro 100 UNIT/ML 10 ML VIAL SC PRN (20:09)
[2024-05-29 09:09] LABS: #Basophils Less than 0.03 10x3/uL (0.0-0.2); #Eosinophils Less than 0.03 10x3/uL (0.0-0.7); %Basophils 0.1 % (0.0-1.0); %Lymphocytes 9.8 % (21.0-51.0); %Monocytes 7.2 % (0.0-10.0); %Neutrophils 81.8 % (42.0-75.0); Hematocrit 33.5 % (42.0-52.0); Hemoglobin 10.4 g/dL (14.0-18.0); Mean Corpuscular Volume 90.1 fL (78.0-98.0); Mean Platelet Volume 9.9 fL (7.4-10.4); Platelet Count 360 10x3/uL (130-400); RBC Distribution Width 13.3 % (11.5-14.5); Red Blood Cell (RBC) Count 3.72 mill/uL (4.70-6.10)
[2024-05-29 09:40] LABS: Anion Gap 18 mmol/L (10-20); BUN (Urea Nitrogen) 72 mg/dL (8.4-25.7); Calc. Creatinine Clearance 44 mL/min (70-130); Calcium 9.2 mg/dL (7.8-10.44); Carbon Dioxide 22 mmol/L (23-31); Chloride 104 mmol/L (98-107); Estimated GFR 46; Glucose 355 mg/dL (80-115); Potassium 6.1 mmol/L (3.5-5.1); Sodium 138 mmol/L (136-145)
[2024-05-29] MEDS: Albuterol 2.5 MG (3 mL) NEB NEB SCH (10:53)
[2024-05-29] MEDS: Sodium Polystyrene Sulfonate 15 GM (60 mL) BOT PO SCH (11:47)
[2024-05-29] MEDS: Insulin Regular, Human 100 UNIT/ML 10 ML VIAL IVP SCH (11:48)
[2024-05-29] MEDS: Dextrose 50% Abboject 50 ML SYRINGE SLOW IVP SCH (11:49)
[2024-05-29] MEDS: HumaLOG 300 UNITS/3 ML VIAL SC SCH (12:15)
[2024-05-29 15:12] LABS: Potassium 4.6 mmol/L (3.5-5.1)
[2024-05-29] MEDS: Insulin Lispro 100 UNIT/ML 10 ML VIAL SC SCH (18:29)
[2024-05-30 07:40] LABS: Anion Gap 12 mmol/L (10-20); BUN (Urea Nitrogen) 53 mg/dL (8.4-25.7); Calc. Creatinine Clearance 80 mL/min (70-130); Calcium 8.7 mg/dL (7.8-10.44); Carbon Dioxide 28 mmol/L (23-31); Chloride 105 mmol/L (98-107); Estimated GFR 93; Glucose 89 mg/dL (80-115); Potassium 4.2 mmol/L (3.5-5.1); Sodium 141 mmol/L (136-145)
[2024-05-30 07:56] LABS: Hematocrit 30.3 % (42.0-52.0); Hemoglobin 9.8 g/dL (14.0-18.0); Mean Corpuscular HGB CONC 32.3 g/dL (32.0-36.0); Mean Corpuscular Hemoglobin 28.2 pg (27.0-31.0); Mean Corpuscular Volume 87.1 fL (78.0-98.0); Mean Platelet Volume 10.3 fL (7.4-10.4); Platelet Count 331 10x3/uL (130-400); RBC Distribution Width 13.8 % (11.5-14.5); Red Blood Cell (RBC) Count 3.48 mill/uL (4.70-6.10)
[2024-05-30 08:28] LABS: Band 3 % (5-11); Lymphocytes 34 % (21-51); Metamyelocyte 1 % (0-0); Monocytes 7 % (0-10); Myelocyte 2 % (0-0); Neutrophil 53 % (42-75); Platelet Adequacy Comment Platelets Normal; Polychromasia SLIGHT = 2-3 cells HPF (0-2)
[2024-05-30 08:30] VITALS: BP 112/58; TEMP 98.3
== END 2024-05-30 13:18 | disposition home health service (06) | DRG 552 ==
LOC: INTOOBSV 18:03 → T4-B 18:03 → OBSVTOIN 05-27 09:45
PROVIDERS: ADMIT Internal Medicine; ATTEND Internal Medicine
DX: M50.222 Other cervical disc displacement at C5-C6 level (principal); I50.32 Chronic diastolic (congestive) heart failure; M50.223 Other cervical disc displacement at C6-C7 level; E87.5 Hyperkalemia; M47.814 Spondylosis without myelopathy or radiculopathy, thoracic region; I11.0 Hypertensive heart disease with heart failure; E78.5 Hyperlipidemia, unspecified; D64.9 Anemia, unspecified; E03.9 Hypothyroidism, unspecified; Z98.890 Other specified postprocedural states; E86.0 Dehydration; G40.909 Epilepsy, unspecified, not intractable, without status epilepticus; R55 Syncope and collapse; Z79.899 Other long term (current) drug therapy; Z79.4 Long term (current) use of insulin
CPT/HCPCS: 36415; 36416; 72141; 72146; 80048; 85025; 93005; 93010; 94640; 96372; 96374; 96376; G0378; J1650; J1815; J1885; J2919; J7030; J7611; J7999

== ENCOUNTER 2024-06-07 15:16 | Inpatient (IN) | payer MEDICARE ==
[2024-06-07 16:17] LABS: Hematocrit 32.1 % (42.0-52.0); Hemoglobin 10.4 g/dL (14.0-18.0); Mean Corpuscular HGB CONC 32.4 g/dL (32.0-36.0); Mean Corpuscular Hemoglobin 28.1 pg (27.0-31.0); Mean Corpuscular Volume 86.8 fL (78.0-98.0); Mean Platelet Volume 11.4 fL (7.4-10.4); Platelet Count 165 10x3/uL (130-400); RBC Distribution Width 15.1 % (11.5-14.5)
[2024-06-07 16:32] LABS: ALT (SGPT) 107 U/L (8-55); AST (SGOT) 105 U/L (5-34); Alkaline Phosphatase 107 U/L (40-110); Anion Gap 19 mmol/L (10-20); BUN (Urea Nitrogen) 37 mg/dL (8.4-25.7); Bilirubin, Total 0.4 mg/dL (0.2-1.2); Calc. Creatinine Clearance 0 mL/min (70-130); Calcium 9.4 mg/dL (7.8-10.44); Carbon Dioxide 20 mmol/L (23-31); Chloride 94 mmol/L (98-107); Estimated GFR 56; Globulin 3.9 g/dL (2.4-3.5); Glucose 162 mg/dL (80-115); Lipase 29 U/L (8-78); Magnesium 1.7 mg/dL (1.6-2.6); Potassium 4.9 mmol/L (3.5-5.1); Protein, Total 6.9 g/dL (5.8-8.1); Sodium 128 mmol/L (136-145)
[2024-06-07 16:34] LABS: Troponin I 0.056 ng/mL (< 0.028)
[2024-06-07 16:37] LABS: Band 21 % (5-11); Lymphocytes 8 % (21-51); Monocytes 7 % (0-10); Neutrophil 63 % (42-75); Platelet Adequacy Comment Platelets Normal; Polychromasia SLIGHT = 2-3 cells HPF (0-2); Reactive Lymphocytes 1 % (0-10)
[2024-06-07] MEDS ORDERED: Aspirin Chewable 81 MG TAB ONE (17:12)
[2024-06-07 18:03] LABS: Bilirubin Negative (Negative); Blood, Urine Negative (Negative); CAUTI Indications for Culture Fever or rigors; Clarity Clear (Clear); Glucose, Urine (Dipstick) Greater than 1000 mg/dL (Negative); Ketone, Urine Trace mg/dL (Negative); Leukocyte Negative Leu/uL (Negative); Nitrite Negative (Negative); Protein, Urine (Dipstick) Negative (Neg-Trace); RBC/HPF 0-3 HPF (0-3); Specific Gravity, Urine 1.027 (1.002-1.036); Squamous Epithelial 0-3 HPF (0-3); Urobilinogen Normal mg/dL (Less than 2); WBC/HPF 0-3 HPF (0-3)
[2024-06-07 18:14] LABS: Bacteria/HPF Rare-Few HPF (None Seen)
[2024-06-07 18:15] LABS: Urine Culture Reflex No No
[2024-06-07] MEDS ORDERED: DOBUTamine 500 mg/250 ml 250 ML ONE (18:21)
[2024-06-07] MEDS ORDERED: Cefepime 2 GM VIAL ONE (20:11)
[2024-06-07] MEDS ORDERED: Sodium Chloride 0.9% 100 ML ONE (20:11)
[2024-06-07] MEDS ORDERED: Ondansetron PF 4 MG/2 ML Vial IVP PRN (20:19)
[2024-06-07] MEDS ORDERED: Insulin Lispro 100 UNIT/ML 10 ML VIAL SC PRN (20:25)
[2024-06-07] MEDS ORDERED: Dextrose 50% Abboject 50 ML SYRINGE SLOW IVP PRN (20:25)
[2024-06-07] MEDS ORDERED: Dextrose 5% in Water 1,000 ML IV PRN (20:25)
[2024-06-07] MEDS ORDERED: Glucagon 1 MG/ML KIT IM PRN (20:25)
[2024-06-07] MEDS ORDERED: Vancomycin 1 GM/200 ML (FROZEN) BAG ONE (20:48)
[2024-06-07 20:50] LABS: Anion Gap 15 mmol/L (10-20); BUN (Urea Nitrogen) 35 mg/dL (8.4-25.7); Calc. Creatinine Clearance 0 mL/min (70-130); Calcium 8.5 mg/dL (7.8-10.44); Carbon Dioxide 21 mmol/L (23-31); Chloride 100 mmol/L (98-107); Estimated GFR 74; Glucose 126 mg/dL (80-115); Potassium 4.3 mmol/L (3.5-5.1); Sodium 132 mmol/L (136-145)
[2024-06-07 20:56] LABS: Troponin I 0.033 ng/mL (< 0.028)
[2024-06-07 22:49] VITALS: BMI 26.9
[2024-06-07] MEDS: Heparin 5,000 UNITS/ML VIAL SC SCH (23:24)
[2024-06-07] MEDS: Vancomycin 1 GM in Premix 1 BAG IVPB SCH (23:24)
[2024-06-07] MEDS: Sodium Chloride 0.9% 1,000 ML IV SCH (23:24)
[2024-06-08 00:01] LABS: Influenza A by NAA Not Detected (NotDetected); Influenza B by NAA Not Detected (NotDetected); SARS-CoV-2 NAA Rapid Test Not Detected (NotDetected)
[2024-06-08 00:02] LABS: Troponin I 0.019 ng/mL (< 0.028)
[2024-06-08 04:54] LABS: #Basophils 0.05 10x3/uL (0.0-0.2); %Basophils 0.3 % (0.0-1.0); %Eosinophils 0.2 % (0.0-10.0); %Lymphocytes 7.5 % (21.0-51.0); %Monocytes 8.6 % (0.0-10.0); %Neutrophils 82.7 % (42.0-75.0); Hemoglobin 9.6 g/dL (14.0-18.0); Mean Corpuscular Hemoglobin 27.6 pg (27.0-31.0); Mean Corpuscular Volume 86.2 fL (78.0-98.0); Mean Platelet Volume 11.6 fL (7.4-10.4); Platelet Count 138 10x3/uL (130-400); RBC Distribution Width 15.1 % (11.5-14.5); Red Blood Cell (RBC) Count 3.48 mill/uL (4.70-6.10)
[2024-06-08 05:18] LABS: ALT (SGPT) 79 U/L (8-55); AST (SGOT) 71 U/L (5-34); Albumin 2.5 g/dL (3.4-4.8); Alkaline Phosphatase 94 U/L (40-110); Anion Gap 18 mmol/L (10-20); BUN (Urea Nitrogen) 27 mg/dL (8.4-25.7); Bilirubin, Total 0.4 mg/dL (0.2-1.2); Calc. Creatinine Clearance 88 mL/min (70-130); Calcium 8.5 mg/dL (7.8-10.44); Carbon Dioxide 18 mmol/L (23-31); Chloride 101 mmol/L (98-107); Estimated GFR 94; Globulin 3.4 g/dL (2.4-3.5); Glucose 116 mg/dL (80-115); Potassium 4.7 mmol/L (3.5-5.1); Protein, Total 5.9 g/dL (5.8-8.1); Sodium 132 mmol/L (136-145)
[2024-06-08] MEDS: Levothyroxine Sodium 100 MCG TAB PO SCH (06:35)
[2024-06-08] MEDS: Cefepime 1 GM in Sodium Chloride 0.9% 100 ML IVPB SCH (08:41)
[2024-06-08] MEDS: Insulin Glargine 30 UNITS/0.3 ML VIAL SC SCH (08:42)
[2024-06-08] MEDS: Empagliflozin 25 MG TAB PO SCH (08:42)
[2024-06-08] MEDS: Ascorbic Acid 500 mg Chewable Tablet PO SCH (08:42)
[2024-06-08] MEDS: Cholecalciferol 1,000 UNITS (25 MCG) TAB PO SCH (08:42)
[2024-06-08] MEDS: Divalproex Sodium 250 MG ER.TAB PO SCH (08:42)
[2024-06-08] MEDS: Gabapentin 300 MG CAP PO SCH (08:42)
[2024-06-08] MEDS: Acetaminophen 500 MG TAB PO PRN (08:43)
[2024-06-08] MEDS: Insulin Lispro 100 UNIT/ML 10 ML VIAL SC PRN (10:56)
[2024-06-08] MEDS: Vancomycin HCl 750 MG in Sodium Chloride 0.9% 250 ML 250 ML IVPB SCH (11:00)
[2024-06-08] MEDS: Sodium Chloride 0.9% 500 ML IV SCH (11:47)
[2024-06-08] MEDS: Guaifenesin DM 100-10/5 ML UDCUP PO PRN (21:11)
[2024-06-08] MEDS: Atorvastatin Calcium 20 MG TAB PO SCH (21:11)
[2024-06-08] MEDS: Benzocaine/Menthol 1 LOZ LOZ PO PRN (21:11)
[2024-06-08] MEDS: Vancomycin 1 GM in Premix 1 BAG IVPB SCH (21:13)
[2024-06-08] MEDS: Cefepime 2 GM in Sodium Chloride 0.9% 100 ML IVPB SCH (21:13)
[2024-06-09 05:06] LABS: ALT (SGPT) 61 U/L (8-55); AST (SGOT) 65 U/L (5-34); Albumin 2.1 g/dL (3.4-4.8); Alkaline Phosphatase 121 U/L (40-110); Anion Gap 11 mmol/L (10-20); BUN (Urea Nitrogen) 16 mg/dL (8.4-25.7); Bilirubin, Total 0.3 mg/dL (0.2-1.2); Calc. Creatinine Clearance 102 mL/min (70-130); Calcium 8.3 mg/dL (7.8-10.44); Carbon Dioxide 21 mmol/L (23-31); Chloride 104 mmol/L (98-107); Estimated GFR 98; Glucose 126 mg/dL (80-115); Potassium 4.1 mmol/L (3.5-5.1); Protein, Total 5.1 g/dL (5.8-8.1); Sodium 132 mmol/L (136-145)
[2024-06-09 05:07] LABS: #Basophils Less than 0.03 10x3/uL (0.0-0.2); #Eosinophils Less than 0.03 10x3/uL (0.0-0.7); %Basophils 0.3 % (0.0-1.0); %Eosinophils 0.1 % (0.0-10.0); %Lymphocytes 18.6 % (21.0-51.0); %Monocytes 10.1 % (0.0-10.0); Hematocrit 26.9 % (42.0-52.0); Hemoglobin 8.7 g/dL (14.0-18.0); Mean Corpuscular HGB CONC 32.3 g/dL (32.0-36.0); Mean Corpuscular Hemoglobin 27.7 pg (27.0-31.0); Mean Corpuscular Volume 85.7 fL (78.0-98.0); Mean Platelet Volume 11.8 fL (7.4-10.4); Platelet Count 112 10x3/uL (130-400); RBC Distribution Width 15.3 % (11.5-14.5); Red Blood Cell (RBC) Count 3.14 mill/uL (4.70-6.10)
[2024-06-09] MEDS: Ampicillin/Sulbactam 3 GM in Sodium Chloride 0.9% 100 ML IVPB SCH (19:27)
[2024-06-10 04:49] LABS: Hematocrit 28.1 % (42.0-52.0); Hemoglobin 8.9 g/dL (14.0-18.0); Mean Corpuscular HGB CONC 31.7 g/dL (32.0-36.0); Mean Corpuscular Hemoglobin 27.5 pg (27.0-31.0); Mean Corpuscular Volume 86.7 fL (78.0-98.0); Mean Platelet Volume 12.1 fL (7.4-10.4); Platelet Count 122 10x3/uL (130-400); RBC Distribution Width 15.8 % (11.5-14.5); Red Blood Cell (RBC) Count 3.24 mill/uL (4.70-6.10)
[2024-06-10 05:04] LABS: ALT (SGPT) 61 U/L (8-55); AST (SGOT) 66 U/L (5-34); Alkaline Phosphatase 147 U/L (40-110); Anion Gap 12 mmol/L (10-20); BUN (Urea Nitrogen) 10 mg/dL (8.4-25.7); Bilirubin, Total 0.3 mg/dL (0.2-1.2); Calc. Creatinine Clearance 113 mL/min (70-130); Calcium 8.2 mg/dL (7.8-10.44); Carbon Dioxide 25 mmol/L (23-31); Chloride 105 mmol/L (98-107); Estimated GFR 101; Glucose 64 mg/dL (80-115); Potassium 3.8 mmol/L (3.5-5.1); Sodium 138 mmol/L (136-145)
[2024-06-10 07:23] LABS: Band 16 % (5-11); Eosinophils 1 % (0-10); Lymphocytes 16 % (21-51); Monocytes 6 % (0-10); Neutrophil 60 % (42-75); Platelet Adequacy Comment Platelets Decreased; RBC Morphology Within Normal Limits
[2024-06-10 08:26] VITALS: TEMP 98.4
[2024-06-10 14:14] VITALS: BP 120/70
== END 2024-06-10 14:29 | disposition home or self-care (01) | DRG 871 ==
LOC: ERS 15:16 → 2NO 20:01 → MSONC 06-09 18:40
PROVIDERS: ADMIT Internal Medicine; ATTEND Internal Medicine
DX: A41.9 Sepsis, unspecified organism (principal); J69.0 Pneumonitis due to inhalation of food and vomit; R65.21 Severe sepsis with septic shock; E87.1 Hypo-osmolality and hyponatremia; N17.9 Acute kidney failure, unspecified; I50.32 Chronic diastolic (congestive) heart failure; I24.89 Other forms of acute ischemic heart disease; I95.9 Hypotension, unspecified; G40.909 Epilepsy, unspecified, not intractable, without status epilepticus; E11.9 Type 2 diabetes mellitus without complications; E03.9 Hypothyroidism, unspecified; E78.5 Hyperlipidemia, unspecified; I11.0 Hypertensive heart disease with heart failure; E88.09 Other disorders of plasma-protein metabolism, not elsewhere classified; Z79.899 Other long term (current) drug therapy
CPT/HCPCS: 36415; 36416; 71045; 80053; 80202; 81001; 83605; 83690; 83735; 83880; 84484; 85025; 87040; 87086; 93005; 94760; 96374; 96375; J0295; J0692; J1250; J1644; J1815; J3370; J3370-JW; J7030; J7050

== ENCOUNTER 2025-05-04 08:18 | Outpatient (CLI) | payer MEDICARE ==
[2025-05-04 10:05] LABS: #Basophils 0.06 10x3/uL (0.0-0.2); #Eosinophils 0.09 10x3/uL (0.0-0.7); #Monocytes 1.47 10x3/uL (0.11-0.59); #Neutrophils 7.37 10x3/uL (1.40-6.50); %Basophils 0.5 % (0.0-1.0); %Eosinophils 0.8 % (0.0-10.0); %Lymphocytes 20.3 % (21.0-51.0); %Monocytes 12.9 % (0.0-10.0); %Neutrophils 64.9 % (42.0-75.0); Hematocrit 48.2 % (42.0-52.0); Hemoglobin 15.2 g/dL (14.0-18.0); Mean Corpuscular Hemoglobin 28.7 pg (27.0-31.0); Mean Corpuscular Volume 91.1 fL (78.0-98.0); Platelet Count 179 10x3/uL (130-400); Red Blood Cell (RBC) Count 5.29 mill/uL (4.70-6.10); White Blood Cell (WBC) Count 11.37 10x3/uL (4.8-10.8)
[2025-05-04 10:27] LABS: ALT (SGPT) 26 U/L (Less than 45); AST (SGOT) 26 U/L (11-34); Albumin 3.7 g/dL (3.1-4.5); Alkaline Phosphatase 50 U/L (40-110); Anion Gap 14 mmol/L (10-20); BUN (Urea Nitrogen) 15 mg/dL (8.4-25.7); Bilirubin, Total 0.5 mg/dL (0.3-1.2); Calc. Creatinine Clearance 0 mL/min (70-130); Calcium 9.1 mg/dL (7.8-10.44); Carbon Dioxide 27 mmol/L (23-31); Chloride 105 mmol/L (98-107); Globulin 2.7 g/dL (2.4-3.5); Glucose 198 mg/dL (83-110); Potassium 4.2 mmol/L (3.5-5.1); Sodium 142 mmol/L (136-145)
== END 2025-05-04 08:19 | disposition home or self-care (01) ==
LOC: LABBT 08:18
PROVIDERS: ATTEND Surgery
DX: Z01.818 Encounter for other preprocedural examination (principal); K63.5 Polyp of colon
CPT/HCPCS: 80053; 82378; 85025; 93005; 93010

== ENCOUNTER 2025-05-05 07:56 | Outpatient (CLI) | payer MEDICARE | END 2025-05-05 07:57 | disposition home or self-care (01) | LOC: BICCT 07:56 | PROVIDERS: ATTEND Internal Medicine Critical Care Medicine | DX: R91.8 Other nonspecific abnormal finding of lung field (principal) | CPT/HCPCS: 71250 ==

== ENCOUNTER 2025-06-02 09:35 | Outpatient (CLI) | payer MEDICARE ==
[~2025-06-02 09:35] MED LIST changes: +Iopamidol 370 76% 100 ML VIAL ONE; -Iopamidol-370 76% 500 ML 1 ML ONE
== END 2025-06-02 09:36 | disposition home or self-care (01) ==
LOC: CT 09:35
PROVIDERS: ATTEND Surgery
DX: G89.18 Other acute postprocedural pain (principal); J90 Pleural effusion, not elsewhere classified; R91.8 Other nonspecific abnormal finding of lung field; Z98.890 Other specified postprocedural states
CPT/HCPCS: 74177; Q9967